=== PATIENT | female | born 1995 ===

== ENCOUNTER 2021-09-20 09:46 | Outpatient (REF) | payer OTHER, SELFPAY ==
[2021-09-20 15:41] LABS: CT PCR NOT DETECTED (Not Detect.); NG PCR NOT DETECTED (Not Detect.)
[2021-09-21 09:03] LABS: BV Int Neg Control Negative (Negative); BV Int Pos Control Positive (Positive)
[2021-09-23 03:36] LABS: HPV mRNA E6/E7 rflx Not Detected (Not Detected)
== END 2021-09-20 09:47 | disposition home or self-care (01) ==
LOC: HO.LAB 09:46
PROVIDERS: Visit Provider Advanced Practice Midwife
DX: Z01.419 Encounter for gynecological examination (general) (routine) without abnormal findings (principal); Z11.3 Encounter for screening for infections with a predominantly sexual mode of transmission; Z11.51 Encounter for screening for human papillomavirus (HPV)
CPT/HCPCS: 87480; 87491; 87510; 87591; 87624; 87660; 88142